=== PATIENT | female | born 1985 | race African-American/Black ===

== ENCOUNTER 2023-01-16 07:02 | Inpatient (IN) | payer OTHER ==
[2023-01-16] MEDS ORDERED: OXYTOCIN 30 UNITS in 0.9% NS 30 UNIT/500 ML INFUS.BAG IVPB SCH ×2 (07:45→09:30)
[2023-01-16] MEDS ORDERED: ELECTROLYTE-148 SOLN 1,000 ML IV SCH (07:45)
[2023-01-16] MEDS ORDERED: OXYTOCIN 30 UNITS in 0.9% NS 30 UNIT/500 ML INFUS.BAG IVPB ONE (09:20)
[2023-01-16 11:04] LABS: BASO % 0.6 % (0-2.0); EOS % 1.1 % (0-4.5); HEMATOCRIT 33.7 % (32.4-45.2); HEMOGLOBIN 11.7 GM/dL (10.7-15.3); LYMPH % 27.4 % (8-40); MCH 30.7 pg (25.7-33.7); MCHC 34.6 g/dl (32.0-36.0); MEAN CELL VOLUME 88.6 fl (80-96); MEAN PLT VOLUME 7.9 fl (7.5-11.1); MONO % 6.1 % (3.8-10.2); NEUT % 64.8 % (42.8-82.8); PLATELET COUNT 217 10^3/uL (134-434); RDW 14.9 % (11.6-15.6)
[2023-01-16 11:10] LABS: INR 0.98 (0.83-1.09); PROTHROMBIN TIME (PATIENT) 11.4 SEC (9.7-13.0)
[2023-01-16 11:13] LABS: ACTIVATED PTT 28.3 SECONDS (25.2-36.5)
[2023-01-16 11:22] LABS: CALCIUM 8.6 mg/dL (8.5-10.1); POTASSIUM 3.9 mmol/L (3.5-5.1)
[2023-01-16 11:23] LABS: BLOOD UREA NITROGEN 4.4 mg/dL (7-18)
[2023-01-16 11:26] LABS: CREATININE 0.5 mg/dL (0.55-1.3)
[2023-01-16] MEDS ORDERED: FENTANYL/BUPIVACAINE/NS/PF - PCEA - 50 ML DISP.SYRIN EP ONE (15:46)
[2023-01-16] MEDS ORDERED: NALOXONE HCL 0.4 MG/ML VIAL IVPUSH PRN (15:54)
[2023-01-16] MEDS ORDERED: BUPIVACAINE HCL/PF 0.25% (2.5MG/ML) 10 ML VIAL ONE (15:59)
[2023-01-16] MEDS ORDERED: FENTANYL CITRATE/PF 50 MCG/ML VIAL ONE (15:59)
[2023-01-16] MEDS ORDERED: FENTANYL/BUPIVACAINE/NS/PF - PCEA - 50 ML DISP.SYRIN EP SCH (16:00)
[2023-01-16] MEDS: ELECTROLYTE-148 SOLN 1,000 ML IV SCH (16:05)
[2023-01-16] MEDS ORDERED: OXYTOCIN 20 UNITS in 0.9% NS 20 UNIT/1,000 ML INFUS.BAG IV ONE (18:10)
[2023-01-16] MEDS ORDERED: BENZOCAINE 20% 57 GM BOTTLE TP PRN (19:06)
[2023-01-16] MEDS ORDERED: BISACODYL 10 MG SUPP.RECT RC PRN (19:06)
[2023-01-16] MEDS ORDERED: BENZOCAINE 28 GM HEMORRHOIDAL OINTMENT TP PRN (19:06)
[2023-01-16] MEDS ORDERED: oxyCODONE HCL 5 MG TABLET PO PRN (19:06)
[2023-01-16] MEDS ORDERED: ACETAMINOPHEN 325 MG TABLET (FP) PO PRN (19:06)
[2023-01-16] MEDS ORDERED: METHYLERGONOVINE MALEATE 0.2 MG/1 ML AMP IM PRN (19:06)
[2023-01-16] MEDS ORDERED: IBUPROFEN 600 MG TABLET (FP) PO PRN (19:06)
[2023-01-16] MEDS ORDERED: WITCH HAZEL 50% (TUCKS) 40 PAD/JAR PAD TP PRN (19:06)
[2023-01-16] MEDS ORDERED: OXYTOCIN 20 UNITS in 0.9% NS 20 UNIT/1,000 ML INFUS.BAG IV SCH (19:15)
[2023-01-16 19:39] LABS: CORD BASE EXCESS -7.1 mmol/L (0-2); CORD HCO3 20.1 mmHg (20-29); CORD pH 7.249 (7.14-7.44)
[2023-01-16 19:40] LABS: CORD BASE EXCESS -3.8 mmol/L (0-2); CORD HCO3 21.8 mmHg (20-29); CORD PCO2 41.5 mmHg (30-78); CORD pH 7.338 (7.14-7.44)
[2023-01-16 20:30] LABS: BASO % 0.3 % (0-2.0); EOS % 0.5 % (0-4.5); HEMATOCRIT 30.4 % (32.4-45.2); HEMOGLOBIN 10.2 GM/dL (10.7-15.3); LYMPH % 20.2 % (8-40); MCH 30.1 pg (25.7-33.7); MCHC 33.6 g/dl (32.0-36.0); MEAN CELL VOLUME 89.4 fl (80-96); MONO % 4.6 % (3.8-10.2); NEUT % 74.4 % (42.8-82.8); PLATELET COUNT 244 10^3/uL (134-434); WHITE BLOOD COUNT 14.2 K/mm3 (4.0-10.0)
[2023-01-16] MEDS ORDERED: ACETAMINOPHEN 325 MG TABLET (FP) ONE (21:17)
[2023-01-16] MEDS ORDERED: oxyCODONE HCL 5 MG TABLET ONE (23:45)
[2023-01-16 23:56] LABS: BASO % 0.4 % (0-2.0); EOS % 0.1 % (0-4.5); HEMATOCRIT 27.2 % (32.4-45.2); HEMOGLOBIN 9.1 GM/dL (10.7-15.3); LYMPH % 7.7 % (8-40); MCH 29.6 pg (25.7-33.7); MCHC 33.4 g/dl (32.0-36.0); MEAN CELL VOLUME 88.5 fl (80-96); MEAN PLT VOLUME 7.8 fl (7.5-11.1); MONO % 4.2 % (3.8-10.2); NEUT % 87.6 % (42.8-82.8); PLATELET COUNT 238 10^3/uL (134-434); RBC 3.08 M/mm3 (3.60-5.2); RDW 14.6 % (11.6-15.6); WHITE BLOOD COUNT 19.6 K/mm3 (4.0-10.0)
[2023-01-17] MEDS ORDERED: morphine SULFATE 4 MG/ML VIAL IVPUSH ONE (08:04)
[2023-01-17 11:07] LABS: HEMATOCRIT 29.8 % (32.4-45.2); HEMOGLOBIN 10.4 GM/dL (10.7-15.3); MCH 30.5 pg (25.7-33.7); MCHC 34.7 g/dl (32.0-36.0); MEAN CELL VOLUME 87.8 fl (80-96); MEAN PLT VOLUME 7.9 fl (7.5-11.1); PLATELET COUNT 214 10^3/uL (134-434); RDW 14.7 % (11.6-15.6); WHITE BLOOD COUNT 20.5 K/mm3 (4.0-10.0)
[2023-01-17 11:41] LABS: POTASSIUM 3.5 mmol/L (3.5-5.1)
[2023-01-17 11:42] LABS: CALCIUM 8.3 mg/dL (8.5-10.1)
[2023-01-17 11:43] LABS: BLOOD UREA NITROGEN 4.1 mg/dL (7-18)
[2023-01-17 11:46] LABS: CREATININE 0.4 mg/dL (0.55-1.3); PHOSPHOROUS 4.5 mg/dL (2.5-4.9)
[2023-01-17 11:48] LABS: ANISOCYTOSIS 2+; MACROCYTOSIS 0; OVALOCYTE 1+
[2023-01-17 12:24] LABS: ACTIVATED PTT 26.6 SECONDS (25.2-36.5); INR 1.03 (0.83-1.09); PROTHROMBIN TIME (PATIENT) 11.9 SEC (9.7-13.0)
[2023-01-17] MEDS: ACETAMINOPHEN 1000 MG/100 ML BAG IVPB PRN ×2 (13:15→19:45)
[2023-01-17] MEDS: PRENATAL VITAMINS W/ FOLIC ACID TABLET (FP) PO SCH (13:17)
[2023-01-17] MEDS: MUPIROCIN 2% TOPICAL OINTMENT FOR DECOLONIZATION NS SCH ×2 (13:21→21:14)
[2023-01-17 15:17] LABS: BASO % 0.1 % (0-2.0); EOS % 0.1 % (0-4.5); HEMATOCRIT 27.5 % (32.4-45.2); HEMOGLOBIN 9.5 GM/dL (10.7-15.3); LYMPH % 13.7 % (8-40); MCH 30.1 pg (25.7-33.7); MCHC 34.4 g/dl (32.0-36.0); MEAN CELL VOLUME 87.5 fl (80-96); MEAN PLT VOLUME 7.7 fl (7.5-11.1); MONO % 5.6 % (3.8-10.2); NEUT % 80.5 % (42.8-82.8); PLATELET COUNT 202 10^3/uL (134-434); RBC 3.15 M/mm3 (3.60-5.2); RDW 14.6 % (11.6-15.6); WHITE BLOOD COUNT 18.5 K/mm3 (4.0-10.0)
[2023-01-17] MEDS: FENTANYL/BUPIVACAINE/NS/PF - PCEA - 50 ML DISP.SYRIN EP SCH (19:17)
[2023-01-17] MEDS: ELECTROLYTE-148 SOLN 1,000 ML IV SCH (21:10)
[2023-01-17] MEDS: SENNOSIDES/DOCUSATE COMBO (SENNA PLUS) TABLET (UD) PO PRN (21:18)
[2023-01-17] MEDS ORDERED: CHLORHEXIDINE GLUCONATE 4% CLEANSER FOR DECOLONIZATION TP SCH (22:00)
[2023-01-17] MEDS ORDERED: HYDROmorphone HCl 2 MG/ML VIAL IVPUSH STA (23:26)
[2023-01-18] MEDS: ACETAMINOPHEN 1000 MG/100 ML BAG IVPB PRN ×2 (06:05→11:15)
[2023-01-18 07:02] LABS: BASO % 0.4 % (0-2.0); EOS % 0.7 % (0-4.5); HEMATOCRIT 25.3 % (32.4-45.2); HEMOGLOBIN 8.7 GM/dL (10.7-15.3); LYMPH % 15.8 % (8-40); MCH 30.5 pg (25.7-33.7); MCHC 34.4 g/dl (32.0-36.0); MEAN CELL VOLUME 88.6 fl (80-96); MEAN PLT VOLUME 7.8 fl (7.5-11.1); MONO % 5.7 % (3.8-10.2); NEUT % 77.4 % (42.8-82.8); PLATELET COUNT 209 10^3/uL (134-434); RBC 2.85 M/mm3 (3.60-5.2); RDW 14.9 % (11.6-15.6); WHITE BLOOD COUNT 16.2 K/mm3 (4.0-10.0)
[2023-01-18] MEDS: FENTANYL/BUPIVACAINE/NS/PF - PCEA - 50 ML DISP.SYRIN EP SCH (08:53)
[2023-01-18] MEDS: PRENATAL VITAMINS W/ FOLIC ACID TABLET (FP) PO SCH (09:12)
[2023-01-18] MEDS: MUPIROCIN 2% TOPICAL OINTMENT FOR DECOLONIZATION NS SCH (09:12)
[2023-01-18 09:20] LABS: ALBUMIN 2.4 g/dl (3.4-5.0); BLOOD UREA NITROGEN 4.3 mg/dL (7-18); MAGNESIUM 2.2 mg/dL (1.8-2.4)
[2023-01-18 09:23] LABS: CREATININE 0.4 mg/dL (0.55-1.3); PHOSPHOROUS 3.6 mg/dL (2.5-4.9)
[2023-01-18 09:24] LABS: BILIRUBIN,TOTAL 1.2 mg/dL (0.2-1); TOT PROT 5.4 g/dl (6.4-8.2)
[2023-01-18] MEDS ORDERED: POLYETHYLENE GLYCOL (HEALTHYLAX) 3350 17 GM PACKET PO SCH ×3 (11:23→11:45)
[2023-01-18] MEDS ORDERED: oxyCODONE HCL 5 MG TABLET PO ONE (11:24)
[2023-01-18] MEDS: IBUPROFEN 400 MG TABLET (FP) PO PRN ×2 (12:41→17:10)
[2023-01-18] MEDS: POLYETHYLENE GLYCOL (HEALTHYLAX) 3350 17 GM PACKET PO SCH (12:41)
[2023-01-18 14:14] LABS: HEMATOCRIT 24.8 % (32.4-45.2); HEMOGLOBIN 8.7 GM/dL (10.7-15.3); MCH 30.4 pg (25.7-33.7); MEAN PLT VOLUME 7.7 fl (7.5-11.1); PLATELET COUNT 219 10^3/uL (134-434); RBC 2.85 M/mm3 (3.60-5.2); WHITE BLOOD COUNT 15.6 K/mm3 (4.0-10.0)
[2023-01-18] MEDS ORDERED: IBUPROFEN 400 MG TABLET (FP) PO PRN (15:00)
[2023-01-18 15:24] VITALS: BMI 27.6
[2023-01-18] MEDS ORDERED: IBUPROFEN 600 MG TABLET (FP) PO PRN (19:51)
[2023-01-18] MEDS: ACETAMINOPHEN 500 MG TABLET (FP) PO PRN (20:44)
[2023-01-19] MEDS: IBUPROFEN 600 MG TABLET (FP) PO PRN ×2 (01:48→09:12)
[2023-01-19 08:45] LABS: HEMATOCRIT 22.3 % (32.4-45.2); HEMOGLOBIN 7.9 GM/dL (10.7-15.3); MCH 31.2 pg (25.7-33.7); MCHC 35.5 g/dl (32.0-36.0); MEAN CELL VOLUME 87.9 fl (80-96); MEAN PLT VOLUME 7.6 fl (7.5-11.1); PLATELET COUNT 212 10^3/uL (134-434); RBC 2.54 M/mm3 (3.60-5.2); RDW 14.8 % (11.6-15.6); WHITE BLOOD COUNT 11.1 K/mm3 (4.0-10.0)
[2023-01-19] MEDS: PRENATAL VITAMINS W/ FOLIC ACID TABLET (FP) PO SCH (09:12)
[2023-01-19 09:14] LABS: POTASSIUM 3.5 mmol/L (3.5-5.1)
[2023-01-19] MEDS: POLYETHYLENE GLYCOL (HEALTHYLAX) 3350 17 GM PACKET PO SCH (09:14)
[2023-01-19 09:15] LABS: ALBUMIN 2.2 g/dl (3.4-5.0); BLOOD UREA NITROGEN 7.2 mg/dL (7-18); CALCIUM 7.6 mg/dL (8.5-10.1); MAGNESIUM 2.3 mg/dL (1.8-2.4)
[2023-01-19 09:19] LABS: CREATININE 0.4 mg/dL (0.55-1.3); PHOSPHOROUS 3.9 mg/dL (2.5-4.9)
[2023-01-19 09:20] LABS: BILIRUBIN,TOTAL 0.7 mg/dL (0.2-1); TOT PROT 5.2 g/dl (6.4-8.2)
[2023-01-19] MEDS ORDERED: POLYETHYLENE GLYCOL (HEALTHYLAX) 3350 17 GM PACKET PO SCH (10:00)
[2023-01-19] MEDS: ACETAMINOPHEN 500 MG TABLET (FP) PO PRN ×2 (12:06→22:01)
[2023-01-20] MEDS: ACETAMINOPHEN 500 MG TABLET (FP) PO PRN ×4 (06:35→23:51)
[2023-01-20 08:30] LABS: BASO % 0.6 % (0-2.0); HEMATOCRIT 27.9 % (32.4-45.2); HEMOGLOBIN 9.8 GM/dL (10.7-15.3); LYMPH % 19.3 % (8-40); MCH 31.2 pg (25.7-33.7); MCHC 35.1 g/dl (32.0-36.0); MEAN PLT VOLUME 7.6 fl (7.5-11.1); NEUT % 70.1 % (42.8-82.8); PLATELET COUNT 257 10^3/uL (134-434); RBC 3.13 M/mm3 (3.60-5.2); RDW 14.1 % (11.6-15.6); WHITE BLOOD COUNT 11.1 K/mm3 (4.0-10.0)
[2023-01-20 08:51] LABS: POTASSIUM 3.9 mmol/L (3.5-5.1)
[2023-01-20 08:52] LABS: ALBUMIN 2.4 g/dl (3.4-5.0); BLOOD UREA NITROGEN 5.7 mg/dL (7-18)
[2023-01-20 08:56] LABS: CREATININE 0.5 mg/dL (0.55-1.3)
[2023-01-20 08:58] LABS: TOT PROT 5.5 g/dl (6.4-8.2)
[2023-01-20] MEDS: PRENATAL VITAMINS W/ FOLIC ACID TABLET (FP) PO SCH (10:26)
[2023-01-20] MEDS: POLYETHYLENE GLYCOL (HEALTHYLAX) 3350 17 GM PACKET PO SCH (10:26)
[2023-01-21] MEDS: ACETAMINOPHEN 500 MG TABLET (FP) PO PRN ×3 (06:07→21:13)
[2023-01-21 07:20] LABS: HEMOGLOBIN 10.2 GM/dL (10.7-15.3); MCH 30.1 pg (25.7-33.7); MCHC 33.9 g/dl (32.0-36.0); MEAN CELL VOLUME 88.9 fl (80-96); MEAN PLT VOLUME 7.2 fl (7.5-11.1); PLATELET COUNT 314 10^3/uL (134-434); RBC 3.38 M/mm3 (3.60-5.2); WHITE BLOOD COUNT 14.3 K/mm3 (4.0-10.0)
[2023-01-21 07:32] LABS: POTASSIUM 3.8 mmol/L (3.5-5.1)
[2023-01-21 07:34] LABS: CALCIUM 8.2 mg/dL (8.5-10.1)
[2023-01-21 07:35] LABS: ALBUMIN 2.6 g/dl (3.4-5.0)
[2023-01-21 07:39] LABS: CREATININE 0.5 mg/dL (0.55-1.3)
[2023-01-21 07:40] LABS: BILIRUBIN,TOTAL 1.5 mg/dL (0.2-1); TOT PROT 5.8 g/dl (6.4-8.2)
[2023-01-21] MEDS: PRENATAL VITAMINS W/ FOLIC ACID TABLET (FP) PO SCH (09:16)
[2023-01-21] MEDS: POLYETHYLENE GLYCOL (HEALTHYLAX) 3350 17 GM PACKET PO SCH (09:16)
[2023-01-21] MEDS: oxyCODONE HCL 5 MG TABLET PO PRN ×2 (10:09→19:10)
[2023-01-21] MEDS: CEFTRIAXONE 1 GM in DEXTROSE 5%-WATER - 50 ML IVPB SCH (19:54)
[2023-01-21] MEDS: SENNOSIDES/DOCUSATE COMBO (SENNA PLUS) TABLET (UD) PO PRN (19:56)
[2023-01-22] MEDS: oxyCODONE HCL 5 MG TABLET PO PRN ×4 (01:00→19:59)
[2023-01-22] MEDS: SENNOSIDES/DOCUSATE COMBO (SENNA PLUS) TABLET (UD) PO PRN (03:12)
[2023-01-22] MEDS: ACETAMINOPHEN 500 MG TABLET (FP) PO PRN ×3 (03:13→23:59)
[2023-01-22 08:59] LABS: BASO % 0.2 % (0-2.0); EOS % 0.5 % (0-4.5); HEMATOCRIT 33.9 % (32.4-45.2); HEMOGLOBIN 11.1 GM/dL (10.7-15.3); LYMPH % 7.5 % (8-40); MCH 29.4 pg (25.7-33.7); MCHC 32.8 g/dl (32.0-36.0); MEAN CELL VOLUME 89.7 fl (80-96); MEAN PLT VOLUME 7.3 fl (7.5-11.1); MONO % 7.2 % (3.8-10.2); NEUT % 84.6 % (42.8-82.8); PLATELET COUNT 394 10^3/uL (134-434); RBC 3.78 M/mm3 (3.60-5.2); RDW 14.3 % (11.6-15.6); WHITE BLOOD COUNT 18.1 K/mm3 (4.0-10.0)
[2023-01-22 09:18] LABS: POTASSIUM 4.2 mmol/L (3.5-5.1)
[2023-01-22 09:20] LABS: ALBUMIN 2.3 g/dl (3.4-5.0)
[2023-01-22 09:21] LABS: BLOOD UREA NITROGEN 6.4 mg/dL (7-18)
[2023-01-22] MEDS: POLYETHYLENE GLYCOL (HEALTHYLAX) 3350 17 GM PACKET PO SCH (09:22)
[2023-01-22] MEDS: PRENATAL VITAMINS W/ FOLIC ACID TABLET (FP) PO SCH (09:22)
[2023-01-22] MEDS: CEFTRIAXONE 1 GM in DEXTROSE 5%-WATER - 50 ML IVPB SCH (09:22)
[2023-01-22 09:24] LABS: CREATININE 0.4 mg/dL (0.55-1.3)
[2023-01-22 09:25] LABS: BILIRUBIN,TOTAL 1.7 mg/dL (0.2-1); TOT PROT 5.8 g/dl (6.4-8.2)
[2023-01-22] MEDS: PIPERACILLIN/TAZOB 3.375 GM 3.375 GM in DEXTROSE 5%-WATER - 50 ML IVPB SCH ×2 (14:58→21:14)
[2023-01-22 16:02] LABS: EPI CELLS 6 /uL (0-25.1); HYALINE CASTS 1 /uL (0-3.1); URINE APPEARANCE CLEAR; URINE BILIRUBIN 1+ (NEGATIVE); URINE COLOR ORANGE; URINE GLUCOSE (UA) NEGATIVE (NEGATIVE); URINE KETONE 2+ (NEGATIVE); URINE LEUK ESTERASE 2+ (NEGATIVE); URINE NITRITE POSITIVE (NEGATIVE); URINE PROTEIN 2+ (NEGATIVE); URINE RBC 1494 /uL (0-23.9); URINE WBC 1491 /uL (0-25.8)
[2023-01-22 19:41] LABS: URINE BACTERIA 50.9 /uL (0-1359)
[2023-01-23] MEDS: oxyCODONE HCL 5 MG TABLET PO PRN ×3 (02:59→20:53)
[2023-01-23] MEDS: PIPERACILLIN/TAZOB 3.375 GM 3.375 GM in DEXTROSE 5%-WATER - 50 ML IVPB SCH ×4 (02:59→21:23)
[2023-01-23] MEDS: ACETAMINOPHEN 500 MG TABLET (FP) PO PRN ×2 (07:49→14:51)
[2023-01-23 08:43] LABS: BASO % 0.2 % (0-2.0); EOS % 1.3 % (0-4.5); HEMOGLOBIN 10.5 GM/dL (10.7-15.3); LYMPH % 8.6 % (8-40); MCH 29.4 pg (25.7-33.7); MCHC 32.9 g/dl (32.0-36.0); MEAN CELL VOLUME 89.4 fl (80-96); MEAN PLT VOLUME 6.8 fl (7.5-11.1); MONO % 7.2 % (3.8-10.2); NEUT % 82.7 % (42.8-82.8); PLATELET COUNT 449 10^3/uL (134-434); RBC 3.58 M/mm3 (3.60-5.2); RDW 14.3 % (11.6-15.6); WHITE BLOOD COUNT 17.4 K/mm3 (4.0-10.0)
[2023-01-23 09:01] LABS: POTASSIUM 3.8 mmol/L (3.5-5.1)
[2023-01-23 09:03] LABS: CALCIUM 8.3 mg/dL (8.5-10.1)
[2023-01-23 09:04] LABS: ALBUMIN 2.3 g/dl (3.4-5.0); BLOOD UREA NITROGEN 7.9 mg/dL (7-18)
[2023-01-23 09:07] LABS: CREATININE 0.5 mg/dL (0.55-1.3)
[2023-01-23 09:08] LABS: BILIRUBIN,TOTAL 1.7 mg/dL (0.2-1); TOT PROT 5.6 g/dl (6.4-8.2)
[2023-01-23] MEDS: PRENATAL VITAMINS W/ FOLIC ACID TABLET (FP) PO SCH (09:37)
[2023-01-23] MEDS: POLYETHYLENE GLYCOL (HEALTHYLAX) 3350 17 GM PACKET PO SCH (10:05)
[2023-01-23] MEDS: SENNOSIDES/DOCUSATE COMBO (SENNA PLUS) TABLET (UD) PO PRN (21:37)
[2023-01-24] MEDS: ACETAMINOPHEN 500 MG TABLET (FP) PO PRN ×4 (00:37→22:18)
[2023-01-24] MEDS: PIPERACILLIN/TAZOB 3.375 GM 3.375 GM in DEXTROSE 5%-WATER - 50 ML IVPB SCH ×3 (02:39→14:44)
[2023-01-24] MEDS: oxyCODONE HCL 5 MG TABLET PO PRN (02:46)
[2023-01-24 07:37] LABS: BASO % 0.4 % (0-2.0); EOS % 2.8 % (0-4.5); HEMATOCRIT 30.6 % (32.4-45.2); HEMOGLOBIN 9.8 GM/dL (10.7-15.3); LYMPH % 18.9 % (8-40); MCH 29.1 pg (25.7-33.7); MCHC 32.1 g/dl (32.0-36.0); MEAN CELL VOLUME 90.7 fl (80-96); MEAN PLT VOLUME 6.8 fl (7.5-11.1); MONO % 7.2 % (3.8-10.2); NEUT % 70.7 % (42.8-82.8); PLATELET COUNT 501 10^3/uL (134-434); RBC 3.38 M/mm3 (3.60-5.2); RDW 14.6 % (11.6-15.6); WHITE BLOOD COUNT 12.4 K/mm3 (4.0-10.0)
[2023-01-24] MEDS: POLYETHYLENE GLYCOL (HEALTHYLAX) 3350 17 GM PACKET PO SCH (10:42)
[2023-01-24] MEDS: PRENATAL VITAMINS W/ FOLIC ACID TABLET (FP) PO SCH (10:43)
[2023-01-24 22:41] VITALS: RESP 18
[2023-01-24] MEDS: NITROFURANTOIN MONOHYD/M-CRYST 100 MG CAPSULE PO SCH (23:31)
[2023-01-25] MEDS: ACETAMINOPHEN 500 MG TABLET (FP) PO PRN ×2 (04:52→17:41)
[2023-01-25 08:47] VITALS: BP 126/72; PULSE 67; TEMP 98.1
[2023-01-25 09:00] LABS: BASO % 0.3 % (0-2.0); EOS % 2.9 % (0-4.5); HEMATOCRIT 29.4 % (32.4-45.2); HEMOGLOBIN 9.9 GM/dL (10.7-15.3); LYMPH % 23.7 % (8-40); MCH 30.3 pg (25.7-33.7); MCHC 33.5 g/dl (32.0-36.0); MEAN CELL VOLUME 90.4 fl (80-96); MEAN PLT VOLUME 6.7 fl (7.5-11.1); MONO % 7.7 % (3.8-10.2); NEUT % 65.4 % (42.8-82.8); PLATELET COUNT 560 10^3/uL (134-434); RBC 3.25 M/mm3 (3.60-5.2); RDW 14.4 % (11.6-15.6)
[2023-01-25] MEDS: PRENATAL VITAMINS W/ FOLIC ACID TABLET (FP) PO SCH (10:03)
[2023-01-25] MEDS: POLYETHYLENE GLYCOL (HEALTHYLAX) 3350 17 GM PACKET PO SCH (10:03)
[2023-01-25] MEDS: NITROFURANTOIN MONOHYD/M-CRYST 100 MG CAPSULE PO SCH (10:23)
== END 2023-01-25 18:53 | disposition home or self-care (01) | DRG 542 ==
LOC: JLDR 07:02 → JICU 01-17 07:43 → J3W 01-18 16:00
PROVIDERS: ADMIT Obstetrics & Gynecology; ATTEND Internal Medicine Pulmonary Disease
PROC: 10E0XZZ Delivery of Products of Conception, External Approach (ICD-10-PCS; principal; 2023-01-16)
PROC: 0KQM0ZZ Repair Perineum Muscle, Open Approach (ICD-10-PCS; 2023-01-16)
PROC: 30233N1 Transfusion of Nonautologous Red Blood Cells into Peripheral Vein, Percutaneous Approach (ICD-10-PCS; 2023-01-17)
PROC: 04LF3DU Occlusion of Left Uterine Artery with Intraluminal Device, Percutaneous Approach (ICD-10-PCS; 2023-01-17)
PROC: 04LE3DT Occlusion of Right Uterine Artery with Intraluminal Device, Percutaneous Approach (ICD-10-PCS; 2023-01-17)
PROC: B41GZZZ Fluoroscopy of Left Lower Extremity Arteries (ICD-10-PCS; 2023-01-17)
PROC: B41FZZZ Fluoroscopy of Right Lower Extremity Arteries (ICD-10-PCS; 2023-01-17)
PROC: B41FZZZ Fluoroscopy of Right Lower Extremity Arteries (ICD-10-PCS; 2023-01-17)
DX: O48.0 Post-term pregnancy (principal); O70.1 Second degree perineal laceration during delivery; Z3A.40 40 weeks gestation of pregnancy; Z37.0 Single live birth; O72.1 Other immediate postpartum hemorrhage; O99.893 Other specified diseases and conditions complicating puerperium; D62 Acute posthemorrhagic anemia; O90.1 Disruption of perineal obstetric wound; K59.00 Constipation, unspecified; R50.9 Fever, unspecified; D72.829 Elevated white blood cell count, unspecified; Z98.890 Other specified postprocedural states; K68.3 Retroperitoneal hematoma
CPT/HCPCS: 36415; 36430; 36600; 37244; 74177-TC; 74178-TC; 76700-TC; 76705-TC; 80048; 80053; 81003; 82803; 83605; 83735; 84100; 85025; 85027; 85610; 85730; 86780; 86850; 86900; 86901; 86922; 87040; 87086; 87635; 97116-GP; 97161-GP; C1760; C1769; C1887; P9058; Q9967

== ENCOUNTER 2023-03-28 12:18 | Emergency (ER) | payer OTHER ==
[2023-03-28 12:45] VITALS: BP 136/85; PULSE 81; RESP 16; TEMP 98.1; BMI 23.6
[2023-03-28] MEDS ORDERED: SODIUM CHLORIDE 1,000 ML IV STA (13:49)
[2023-03-28] MEDS ORDERED: ACETAMINOPHEN 1000 MG/100 ML BAG IVPB ONE (13:49)
[2023-03-28] MEDS ORDERED: ACETAMINOPHEN INJECTION 100 ML IVPB ONE (13:55)
[2023-03-28 14:27] LABS: BASO % 0.7 % (0-2.0); EOS % 1.3 % (0-4.5); HEMATOCRIT 40.2 % (32.4-45.2); HEMOGLOBIN 13.1 GM/dL (10.7-15.3); LYMPH % 34.5 % (8-40); MCH 28.9 pg (25.7-33.7); MCHC 32.6 g/dl (32.0-36.0); MEAN CELL VOLUME 88.5 fl (80-96); MEAN PLT VOLUME 7.7 fl (7.5-11.1); NEUT % 59.5 % (42.8-82.8); PLATELET COUNT 242 10^3/uL (134-434); RBC 4.54 M/mm3 (3.60-5.2); RDW 14.1 % (11.6-15.6); WHITE BLOOD COUNT 8.6 K/mm3 (4.0-10.0)
[2023-03-28 14:33] LABS: INR 1.1 (0.83-1.09); PROTHROMBIN TIME (PATIENT) 12.8 SEC (9.7-13.0)
[2023-03-28 14:36] LABS: ACTIVATED PTT 30.9 SECONDS (25.2-36.5)
[2023-03-28 14:40] LABS: HCG,QUALITATIVE URINE Negative
[2023-03-28 14:41] LABS: EPI CELLS 6 /uL (0-25.1); HYALINE CASTS 0 /uL (0-3.1); PH,URINE 5.5 (5.0-8.0); URINE APPEARANCE CLEAR; URINE BACTERIA 23 /uL (0-1359); URINE BILIRUBIN NEGATIVE (NEGATIVE); URINE COLOR YELLOW; URINE GLUCOSE (UA) NEGATIVE (NEGATIVE); URINE KETONE NEGATIVE (NEGATIVE); URINE LEUK ESTERASE 1+ (NEGATIVE); URINE NITRITE NEGATIVE (NEGATIVE); URINE PROTEIN NEGATIVE (NEGATIVE); URINE RBC 2858 /uL (0-23.9); URINE UROBILINOGEN 0.2 mg/dL (0.2-1.0); URINE WBC 56 /uL (0-25.8)
[2023-03-28 14:43] LABS: POTASSIUM 3.9 mmol/L (3.5-5.1)
[2023-03-28 14:45] LABS: ALBUMIN 4.2 g/dl (3.4-5.0); CALCIUM 9.2 mg/dL (8.5-10.1)
[2023-03-28 14:46] LABS: BLOOD UREA NITROGEN 9.9 mg/dL (7-18)
[2023-03-28 14:48] LABS: CREATININE 0.7 mg/dL (0.55-1.3)
[2023-03-28 14:50] LABS: TOT PROT 7.7 g/dl (6.4-8.2)
[2023-03-28 14:52] LABS: BILIRUBIN,TOTAL 0.8 mg/dL (0.2-1)
== END 2023-03-28 15:04 | disposition home or self-care (01) ==
LOC: JER 12:18
DX: N92.0 Excessive and frequent menstruation with regular cycle (principal)
CPT/HCPCS: 36415; 80053; 81003; 84702; 84703; 85025; 85610; 85730; 86850; 86900; 86901; 87086; 99283-25